=== PATIENT | female | born 2000 | race Two or more races ===

== ENCOUNTER 2020-03-06 11:38 | Emergency (ER) | payer MEDICAID, OTHER ==
[~2020-03-06] VITALS: Ht 157.5 cm; Wt 91.2 kg
[2020-03-06 12:26] VITALS: BP 140/85
== END 2020-03-06 12:56 | disposition home or self-care (01) ==
LOC: ER 11:38
DX: S01.111A Laceration without foreign body of right eyelid and periocular area, initial encounter (principal); W18.09XA Striking against other object with subsequent fall, initial encounter; Y93.89 Activity, other specified; Y92.89 Other specified places as the place of occurrence of the external cause; Y99.8 Other external cause status
CPT/HCPCS: 12013; 93005

== ENCOUNTER 2020-03-11 07:56 | Emergency (ER) | payer MEDICAID ==
[~2020-03-11] VITALS: Ht 157.5 cm; Wt 90.7 kg
[2020-03-11 08:04] VITALS: BP 140/83
== END 2020-03-11 08:23 | disposition home or self-care (01) ==
LOC: ER 07:56
DX: S01.111D Laceration without foreign body of right eyelid and periocular area, subsequent encounter (principal); X58.XXXD Exposure to other specified factors, subsequent encounter